=== PATIENT | female | born 1965 | race Caucasian/White ===

== ENCOUNTER → 2016-06-01 | Outpatient (CLI) | payer OTHER ==
--- NOTE | 2016-06-01 08:32 | RAD ---
Procedure: XR HAND 1-2 VIEWS Exam Date: 06/01/2016 8:05 AM CDT Ordering Provider: Reanna Maxwell Clinical Indication: PAIN IN HAND AND FINGERS Comparison: None Findings: There is no fracture or dislocation. Mild degenerative changes of the first interphalangeal joint as well as second MCP joint. There is smooth cortical undulation seen at the second MCP joint. No definite cortical erosions or scalloping, however findings may represent potentially sequela of chronic inflammatory arthritis such as gout. There are no lytic or sclerotic lesions. There is no radiopaque foreign body. There is no subcutaneous gas. Impression: 1. Subtle scalloping and contra abnormality of the head of the second metacarpal. This is nonspecific and may represent degenerative or posttraumatic changes or potentially represent chronic sequela of inflammatory arthritis such as gout. 2. 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 3. No fractures or subluxations of the right hand. Electronically signed by: Matt Vasquez MD 06/01/2016 8:31 AM CDT
== END | disposition home or self-care (01) ==
LOC: YCFC.O 07:36
PROVIDERS: ATTEND Nurse Practitioner Family
DX: I25.10 Atherosclerotic heart disease of native coronary artery without angina pectoris (principal); E78.1 Pure hyperglyceridemia

== ENCOUNTER → 2017-05-18 | Outpatient (CLI) | payer OTHER | LOC: YCFC.O 11:02 | PROVIDERS: ATTEND Nurse Practitioner Family | DX: E78.2 Mixed hyperlipidemia (principal); I10 Essential (primary) hypertension; R73.02 Impaired glucose tolerance (oral) ==

== ENCOUNTER 2017-06-29 19:56 | Emergency (ER) | payer OTHER ==
--- NOTE | 2017-06-29 20:24 | ED.PDOC ---
History of Present Illness - General Chief Complaint: Respiratory Problem Time Seen by Provider: 06/29/17 20:21 Source: patient, RN notes reviewed, Vital Signs reviewed Additional Information: 52 YEAR OLD WHITE FEMALE WITH KNOWN HISTORY OF CAD CHRONIC SMOKER PRESENTS WITH PRODUCTIVE COUGH BREATHING DIFFICULTY SPUTUM TINGED WITH BLOOD ONSET 2 WEEKS AGO - History of Present Illness Timing/Duration: 1 week Severity: moderate Improving Factors: nothing Worsening Factors: nothing Associated Symptoms: denies symptoms Allergies/Adverse Reactions: Allergies NO KNOWN ALLERGY Allergy (Verified 10/02/15 19:16) Home Medications: Ambulatory Orders Carvedilol 12.5 mg PO BID 07/16/12 Aspirin 325 mg PO QD 10/22/13 Paroxetine HCl 30 mg PO DAILY 10/22/13 Nitroglycerin [Nitro-Time] 0 mg PO BID 03/08/14 Omeprazole [Prilosec] 40 mg PO ACBK 05/30/15 predniSONE [Prednisone] 40 mg PO DAILY #10 tab 10/02/15 Azithromycin Tab [Zithromax Tab] 250 mg PO QDPC #6 tab 06/29/17 Methylprednisolone [Medrol Dose Jong] 4 mg PO DAILY 6 Days #21 tab 06/29/17 Review of Systems - Review of Systems Constitutional: States: no symptoms reported EENTM: States: no symptoms reported Respiratory: States: see HPI Cardiology: States: no symptoms reported Gastrointestinal/Abdominal: States: no symptoms reported Genitourinary: States: no symptoms reported Musculoskeletal: States: no symptoms reported Skin: States: no symptoms reported Neurological: States: no symptoms reported Endocrine: States: no symptoms reported Past Medical History (General) - Patient Medical History Hx Seizures: No Hx Stroke: No Hx Dementia: No Hx Asthma: No Hx of COPD: No Hx Cardiac Disorders: Yes Hx Congestive Heart Failure: No Hx Pacemaker: No Hx Hypertension: No Hx Thyroid Disease: No Hx Diabetes: No Hx Gastroesophageal Reflux: No Hx Renal Disease: No Hx Cancer: No Hx of HIV: No Hx Hepatitis C: No Hx MRSA: No MRSA Source:: Wound - Vaccination History Hx Tetanus, Diphtheria Vaccination: No Hx Influenza Vaccination: No Hx Pneumococcal Vaccination: No - Social History Hx Tobacco Use: Yes Hx Chewing Tobacco Use: No Hx Alcohol Use: No Hx Substance Use: No Hx Substance Use Treatment: No Hx Depression: No Hx Physical Abuse: No Hx Emotional Abuse: No Hx Suspected Abuse: No - Female History Hx Last Menstrual Period: 07/10/13 Patient : No Family Medical History - Family History Mother Family History: No Known Living Status: Still Living Hx Cardiac Disease: Yes Father Family History: No Known Living Status: Still Living Hx Cardiac Disease: Yes Hx Family Diabetes: Yes Departure - Departure Clinical Impression: Acute bronchitis Time of Disposition: 21:06 Disposition: Discharge to Home or Self Care Condition: Good Departure Forms: ED Discharge - Pt. Copy, Patient Portal Self Enrollment Activity: increase activity as tolerated Referrals: Alyssa Garay NP [Primary Care Provider] - 1-2 Weeks Prescriptions: Azithromycin Tab [Zithromax Tab] 250 mg PO QDPC #6 tab Methylprednisolone [Medrol Dose Jong] 4 mg PO DAILY 6 Days #21 tab Home Medications: Ambulatory Orders Carvedilol 12.5 mg PO BID 07/16/12 Aspirin 325 mg PO QD 10/22/13 Paroxetine HCl 30 mg PO DAILY 10/22/13 Nitroglycerin [Nitro-Time] 0 mg PO BID 03/08/14 Omeprazole [Prilosec] 40 mg PO ACBK 05/30/15 predniSONE [Prednisone] 40 mg PO DAILY #10 tab 10/02/15 Azithromycin Tab [Zithromax Tab] 250 mg PO QDPC #6 tab 06/29/17 Methylprednisolone [Medrol Dose Jong] 4 mg PO DAILY 6 Days #21 tab 06/29/17
[2017-06-29] MEDS ORDERED: DEXAMETHASONE INJ 10 MG/ML VIAL IM ONE (20:25)
--- NOTE | 2017-06-29 20:42 | RAD ---
PROCEDURE: Chest,2 Views CLINICAL HISTORY: cough INDICATION: Same as above COMPARISON: 01/26/2016 TECHNIQUE: PA and and lateral chest radiographs were obtained. FINDINGS: The lung latham are well inflated. There are no discrete airspace infiltrates, pneumothoraces or pleural effusions. The pulmonary vascularity is normal The cardiomediastinal silhouette is unremarkable for patient's age and sex. IMPRESSION: There is no acute pleural-parenchymal process seen in the imaged lung latham. Place of interpretation: [facility]iology. Electronically signed by: Maciej Thompson MD 06/29/2017 8:41 PM CDT Workstation: [id number]
[2017-06-29 22:07] VITALS: BP 162/87; TEMP 98.1; O2SAT 94
== END 2017-06-29 21:25 | disposition home or self-care (01) ==
LOC: ER 19:56
DX: J20.9 Acute bronchitis, unspecified (principal); Z79.82 Long term (current) use of aspirin; Z87.891 Personal history of nicotine dependence
CPT/HCPCS: 71046; J1100

== ENCOUNTER 2017-08-04 15:51 | Emergency (ER) | payer OTHER ==
[2017-08-04 16:00] VITALS: BP 141/83; TEMP 99.3; O2SAT 98
[2017-08-04] MEDS ORDERED: AZITHROMYCIN 250 MG TAB PO ONE (16:18)
--- NOTE | 2017-08-04 16:25 | ED.PDOC ---
History of Present Illness - General Chief Complaint: General Stated Complaint: Cough, congestion, hoarseness Time Seen by Provider: 08/04/17 15:55 Source: patient Exam Limitations: no limitations - History of Present Illness Initial Comments: the patient is a 52-year-old female presenting to the emergency room secondary to significant productive cough that started last night.definite fevers. No sore throat. She does have something of a chronic runny nose. She does have a history of some recurrent bronchitis. She denies any history of COPD. No shortness of breath. Timing/Duration: 24 hours Severity: moderate Improving Factors: nothing Worsening Factors: nothing Associated Symptoms: denies symptoms Allergies/Adverse Reactions: Allergies NO KNOWN ALLERGY Allergy (Verified 08/04/17 16:09) Home Medications: Ambulatory Orders Carvedilol 12.5 mg PO BID 07/16/12 Paroxetine HCl 30 mg PO DAILY 10/22/13 Aspirin [Aspirin Adult Low Dose] 162 mg PO DAILY 08/04/17 Azithromycin 500 mg PO DAILY #5 tab 08/04/17 Review of Systems - Review of Systems Constitutional: States: malaise EENTM: States: nose congestion, other - the patient is hoarse Respiratory: States: cough Cardiology: States: no symptoms reported Gastrointestinal/Abdominal: States: no symptoms reported Genitourinary: States: no symptoms reported Musculoskeletal: States: no symptoms reported Skin: States: no symptoms reported Neurological: States: no symptoms reported All other Systems: No Change from Baseline Past Medical History (General) - Patient Medical History Hx Seizures: No Hx Stroke: No Hx Dementia: No Hx Asthma: No Hx of COPD: No Hx Cardiac Disorders: Yes - [place]; cardiac stents; high triglycerides Hx Congestive Heart Failure: No Hx Pacemaker: No Hx Hypertension: Yes Hx Thyroid Disease: No Hx Diabetes: No Hx Gastroesophageal Reflux: Yes Hx Renal Disease: No Hx Cancer: No Hx of HIV: No Hx Hepatitis C: No Hx MRSA: No MRSA Source:: Wound Surgical History: appendectomy, cholecystectomy - Vaccination History Hx Tetanus, Diphtheria Vaccination: No Hx Influenza Vaccination: No Hx Pneumococcal Vaccination: No - Social History Hx Tobacco Use: Yes Hx Chewing Tobacco Use: No Hx Alcohol Use: No Hx Substance Use: No Hx Substance Use Treatment: No Hx Depression: No Hx Physical Abuse: No Hx Emotional Abuse: No Hx Suspected Abuse: No - Female History Hx Last Menstrual Period: 07/10/13 Patient : No Family Medical History - Family History Mother Family History: No Known Living Status: Still Living Hx Cardiac Disease: Yes Father Family History: No Known Living Status: Still Living Hx Cardiac Disease: Yes Hx Family Diabetes: Yes Physical Exam - Physical Exam General Appearance: Alert, Comfortable, No apparent distress Eye Exam: bilateral normal Ears, Nose, Throat: hearing grossly normal, normal pharynx, nasal congestion Neck: full range of motion, supple Respiratory: lungs clear, normal breath sounds, no respiratory distress, no accessory muscle use Cardiovascular/Chest: normal peripheral pulses, regular rate, rhythm, no edema Peripheral Pulses: radial,right: 2+, radial,left: 2+ Gastrointestinal/Abdominal: non tender, soft Rectal Exam: deferred Back Exam: no CVA tenderness Extremity: non-tender, normal inspection, no pedal edema 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 The patient is going to be placed on azithromycin for 5 days. She needs to keep herself hydrated. Ibuprofen may help some reduce symptoms as well. Liquid Robitussin can help some with cough. She needs to follow-up with her primary care doctor next week. Lungs are otherwise clear at this time and patient is in no significant distress. ER warnings were given for any worsening. Departure - Departure Clinical Impression: Acute bronchitis Qualifiers: Bronchitis organism: unspecified organism Qualified Code(s): J20.9 - Acute bronchitis, unspecified Disposition: Discharge to Home or Self Care Condition: Fair Departure Forms: ED Discharge - Pt. Copy, Patient Portal Self Enrollment Instructions: DI for Acute Bronchitis Diet: regular diet Activity: increase activity as tolerated Referrals: Alyssa Garay NP [Primary Care Provider] - 1-2 Weeks Prescriptions: Azithromycin 500 mg PO DAILY #5 tab Home Medications: Ambulatory Orders Carvedilol 12.5 mg PO BID 07/16/12 Paroxetine HCl 30 mg PO DAILY 10/22/13 Aspirin [Aspirin Adult Low Dose] 162 mg PO DAILY 08/04/17 Azithromycin 500 mg PO DAILY #5 tab 08/04/17 Additional Instructions: the patient is a 52-year-old female presenting to the emergency room secondary to what appears to be the start of a mild bronchitis. The patient is going to be placed on azithromycin for 5 days. She needs to keep herself hydrated. Ibuprofen may help some reduce symptoms as well. Liquid Robitussin can help some with cough. She needs to follow-up with her primary care doctor next week. Lungs are otherwise clear at this time and patient is in no significant distress. ER warnings were given for any worsening.
== END 2017-08-04 16:38 | disposition home or self-care (01) ==
LOC: ER 15:51
DX: J20.9 Acute bronchitis, unspecified (principal); I25.2 Old myocardial infarction; I10 Essential (primary) hypertension; K21.9 Gastro-esophageal reflux disease without esophagitis; Z79.82 Long term (current) use of aspirin

== ENCOUNTER → 2019-07-18 | Outpatient (CLI) | payer OTHER ==
--- NOTE | 2019-07-18 13:21 | US ---
EXAM DESCRIPTION: Venous,Upper Extremity LT: ULTRASOUND. CLINICAL HISTORY: SWELLING OF LEFT UPPER LIMB COMPARISON: None Available. TECHNIQUE: Two -dimensional and doppler sonographic evaluation of the deep venous system of the left upper extremity. FINDINGS: Doppler evaluation shows normal color flow and normal phasicity and augmentation of the left subclavian, jugular, axillary, basilic, brachial, radial vein and ulnar vein.. Cephalic vein was not visualized. The left upper extremity deep veins showed normal occlusion with transducer pressure. Two-dimensional survey showed no echogenic thrombus within these veins. IMPRESSION: Duplex ultrasound evaluation of the left upper extremity deep venous system showing no thrombosis . Electronically signed by: Aníbal Ramirez MD 07/18/2019 1:20 PM CDT
== END ==
LOC: LAB.O 12:01
PROVIDERS: ATTEND Nurse Practitioner Family
DX: R22.32 Localized swelling, mass and lump, left upper limb (principal)

== ENCOUNTER 2020-02-02 10:38 | Emergency (ER) | payer OTHER ==
[2020-02-02 10:49] VITALS: BP 145/93; TEMP 98.2; O2SAT 97
[2020-02-02] MEDS ORDERED: predniSONE 20 MG TAB PO ONE (10:55)
[2020-02-02] MEDS ORDERED: IPRATROPIUM/ALBUTEROL 3 ML VIAL NEB ONE (10:56)
--- NOTE | 2020-02-02 10:59 | ED.PDOC ---
History of Present Illness - General Chief Complaint: Respiratory Problem Stated Complaint: sinus infection Time Seen by Provider: 02/02/20 10:47 Source: patient, RN notes reviewed, Vital Signs reviewed Exam Limitations: no limitations - History of Present Illness Comments: 54F with PMH significant for CAD s/p CABG this last year presents with complaint of sinus infection. she states that for the past four days she has had dry cough, subjective fevers/chills, facial pain and nasal drainage. No recent travel or sick contacts. No loss of taste or smell. no known COVID exposure. She saw her PCP via telehealth and was given mucolytic and cough suppressant which have helped only a little. She denies history of COPD, she is a current every day smoker. No other complaints at this time. Timing/Duration: week Cough Quality/Degree: dry cough Possible Cause: unknown cause Improving Factors: medication Worsening Factors: nothing Associated Symptoms: cough, facial pain, fever/chills, nasal congestion, nasal drainage, shortness of breath, sinus infection Allergies/Adverse Reactions: Allergies Statins Allergy (Verified 02/02/20 10:49) Home Medications: Ambulatory Orders Carvedilol 12.5 mg PO BID 07/16/12 Paroxetine HCl 30 mg PO DAILY 10/22/13 Aspirin [Aspirin Adult Low Dose] 162 mg PO DAILY 08/04/17 Albuterol Inhaler [Ventolin Hfa Inhaler] 2 puff INH Q4HR PRN #1 inh 02/02/20 Clopidogrel Bisulfate [Plavix] 75 mg PO QD 02/02/20 Doxycycline Hyclate 100 mg PO BID #20 tab 02/02/20 Ezetimibe [Zetia] 10 mg PO DAILY 02/02/20 predniSONE 60 mg PO DAILY #15 tab 02/02/20 Review of Systems - Review of Systems Constitutional: States: chills, fever, malaise EENTM: States: nose pain, nose congestion Respiratory: States: cough. Denies: orthopnea, short of breath, wheezing Cardiology: Denies: chest pain, palpitations Gastrointestinal/Abdominal: Denies: abdominal pain, diarrhea, nausea Genitourinary: States: no symptoms reported Musculoskeletal: States: no symptoms reported Skin: States: no symptoms reported Neurological: States: no symptoms reported Endocrine: States: no symptoms reported Hematologic/Lymphatic: States: no symptoms reported All other Systems: Reviewed and Negative Past Medical History (General) - Patient Medical History Hx Seizures: No Hx Stroke: No Hx Dementia: No Hx Asthma: No Hx of COPD: No Hx Cardiac Disorders: Yes - [place]; cardiac stents; high triglycerides Hx Congestive Heart Failure: No Hx Pacemaker: No Hx Hypertension: Yes Hx Thyroid Disease: No Hx Diabetes: No Hx Gastroesophageal Reflux: Yes Hx Renal Disease: No Hx Cancer: No Hx of HIV: No Hx Hepatitis C: No Hx MRSA: No MRSA Source:: Wound Surgical History: appendectomy, cholecystectomy, coronary bypass surgery - Vaccination History Hx Tetanus, Diphtheria Vaccination: No Hx Influenza Vaccination: No Hx Pneumococcal Vaccination: No - Social History Hx Tobacco Use: Yes Hx Chewing Tobacco Use: No Hx Alcohol Use: No Hx Substance Use: No Hx Substance Use Treatment: No Hx Depression: No Hx Physical Abuse: No Hx Emotional Abuse: No Hx Suspected Abuse: No - Female History Hx Last Menstrual Period: 07/10/13 Patient : No Family Medical History - Family History Mother Family History: No Known Living Status: Still Living Hx Cardiac Disease: Yes Father Family History: No Known Living Status: Still Living Hx Cardiac Disease: Yes Hx Family Diabetes: Yes Physical Exam - Physical Exam General Appearance: Alert, Comfortable, No apparent distress ENT Exam: nasal congestion, nasal drainage, other - mild TTP over frontal and maxillary sinus Neck: non-tender, full range of motion, normal inspection Respiratory: no respiratory distress, no accessory muscle use, wheezing - expiratory wheezing throughout Cardiovascular/Chest: normal peripheral pulses, regular rate, rhythm, no edema Neurologic: no motor/sensory deficits, alert, normal mood/affect, oriented x 3 Progress - Progress Progress: 02/02/20 11:04 Patient presents with concern for sinusitis. There is mild tenderness over her sinuses, no fevers in ED. She does, however, have expiratory wheezing in setting of chronic smoking, likely undiagnosed COPD. She improved after nebulizer and steroids. Will continue outpatient symptomatic management with albuterol, steroids, antibiotics. She will follow up with her PCP for repeat evaluation and PFTs. Home care instructions and return indications reviewed. Departure - Departure Clinical Impression: Acute bronchospasm Time of Disposition: 11:08 Disposition: Discharge to Home or Self Care Condition: Excellent Departure Forms: ED Discharge - Pt. Copy, Patient Portal Self Enrollment Instructions: Chronic Obstructive Pulmonary Disease (COPD) (DC) Diet: resume usual diet Activity: increase activity as tolerated Referrals: Reanna Maxwell NP [Primary Care Provider] - 1-2 Weeks Prescriptions: Albuterol Inhaler [Ventolin Hfa Inhaler] 2 puff INH Q4HR PRN #1 inh PRN Reason: See Comments Below Doxycycline Hyclate 100 mg PO BID #20 tab predniSONE 60 mg PO DAILY #15 tab Home Medications: Ambulatory Orders Carvedilol 12.5 mg PO BID 07/16/12 Paroxetine HCl 30 mg PO DAILY 10/22/13 Aspirin [Aspirin Adult Low Dose] 162 mg PO DAILY 08/04/17 Albuterol Inhaler [Ventolin Hfa Inhaler] 2 puff INH Q4HR PRN #1 inh 02/02/20 Clopidogrel Bisulfate [Plavix] 75 mg PO QD 02/02/20 Doxycycline Hyclate 100 mg PO BID #20 tab 02/02/20 Ezetimibe [Zetia] 10 mg PO DAILY 02/02/20 predniSONE 60 mg PO DAILY #15 tab 02/02/20
== END 2020-02-02 11:18 | disposition home or self-care (01) ==
LOC: ER 10:38
DX: J98.01 Acute bronchospasm (principal); R06.2 Wheezing; R09.81 Nasal congestion; R51.9 Headache, unspecified; F17.200 Nicotine dependence, unspecified, uncomplicated; I25.2 Old myocardial infarction; K21.9 Gastro-esophageal reflux disease without esophagitis; Z95.1 Presence of aortocoronary bypass graft; Z79.899 Other long term (current) drug therapy; Z79.02 Long term (current) use of antithrombotics/antiplatelets; Z88.8 Allergy status to other drugs, medicaments and biological substances
CPT/HCPCS: 94640; J7512; J7620